=== PATIENT | female | born 1985 | race Two or more races ===

== ENCOUNTER 2023-08-24 17:12 | Emergency (ER) | payer OTHER ==
[~2023-08-24] VITALS: Ht 152.4 cm; Wt 62.8 kg
[2023-08-24 19:06] LABS: Basophils # (auto) 0 10 ^3/uL (0-0.2); Basophils % (auto) 0.2 % (0.0-2.0); Eosinophils # (auto) 0 10 ^3/uL (0-0.8); Eosinophils % (auto) 0.1 % (0.0-7.0); Hematocrit 39.9 % (36.0-46.0); Hemoglobin 12.7 g/dL (12.2-16.2); Mean Corpuscular Hemoglobin 26.7 pg (28.0-32.0); Mean Corpuscular Hgb Conc. 31.9 g/dL (32.0-36.0); Mean Corpuscular Volume 83.9 fL (80.0-100.0); Monocytes # (auto) 0.3 10 ^3/uL (0-1.3); Monocytes % (auto) 2.3 % (0.0-12.0); Neutrophils # (auto) 13.4 10 ^3/uL (1.6-8.6); Neutrophils % (auto) 90.4 % (37.0-80.0); Nucleated Red Blood Cells % 0.1 %; Red Blood Cells 4.76 10^6/uL (4.0-5.20); Red Cell Distribution Width 15.2 % (11.8-14.3); White Blood Cell 14.9 10^3/uL (4.4-10.8)
[2023-08-24 19:26] LABS: Alanine Aminotransferase 22 U/L (7-40); Albumin 4.5 g/dL (3.2-4.8); Alkaline Phosphatase 82 U/L (46-116); Anion Gap 5 (5-15); Aspartate Aminotransferase 19 U/L (13-40); Calcium 9.9 mg/dL (8.5-10.1); Carbon Dioxide 29 mmol/L (20-30); Chloride 105 mmol/L (98-107); Glucose 96 mg/dL (74-106); Potassium 3.8 mmol/L (3.5-5.1); Sodium 139 mmol/L (136-145)
[2023-08-24 19:27] LABS: Bilirubin, Total 0.6 mg/dL (0.2-1.0); Total Protein 7.1 g/dL (5.7-8.2)
[2023-08-24 19:33] LABS: BUN/Creatinine Ratio 7.2 (10.0-20.0); Blood Urea Nitrogen < 5 mg/dL (9-23)
[2023-08-24 19:47] LABS: Lipase 35 U/L (12-53)
[2023-08-24 19:55] LABS: Urine Bacteria None Seen /hpf (None Seen)
[2023-08-24 20:26] LABS: Urine Blood 1+ /uL (Negative); Urine Clarity Clear (Clear); Urine Color Dark-Yellow (Yellow); Urine Protein, UAD Negative (Negative); Urine Specific Gravity 1.001 (1.001-1.035); Urine Urobilinogen Normal (Negative); Urine WBC 2 /hpf (0 - 5); Urine pH 5.5 (5.0-9.0)
[2023-08-24] MEDS ORDERED: NITR-87 PO (21:07)
[2023-08-24 21:24] VITALS: PULSE 80; RESP 20; O2SAT 98
[2023-08-24] MEDS: cefTRIAXone 1GM/50ML D5W 50 ML IV ONE (21:27)
[2023-08-24 21:59] VITALS: BP 128/84; PULSE 78; RESP 16; TEMP 98; O2SAT 98
== END 2023-08-24 21:59 | disposition home or self-care (01) ==
LOC: ER 17:12
DX: N30.90 Cystitis, unspecified without hematuria (principal); R10.2 Pelvic and perineal pain; Z79.899 Other long term (current) drug therapy
CPT/HCPCS: 36415; 74176; 80053; 81001; 81025; 83605; 83690; 84702; 85025; 96365; 99285; J0696